=== PATIENT | female | born 1960 | race Caucasian/White ===

== ENCOUNTER 2023-07-22 10:00 | Day surgery (SDC) | payer BC ==
[~2023-07-22] VITALS: Ht 160 cm; Wt 72.9 kg
[~2023-07-22 10:00] MED LIST: ALBU8.5H INH; ATOR1TAB19 PO; BUDE10.2 INH; DESV50TA3 PO; HYDR12.55 PO; IRON65TA2 PO; LEVO125T4 PO; LOSA50TA28 PO; PHENYLEPHRINE 10% OPHTH SOL 5ML OD PRN
[2023-07-22] MEDS: LIDOCAINE 3.5 % 1ML OPHTH TOPICAL GEL OU ONE (10:49)
[2023-07-22] MEDS: OFLOXACIN 0.3 % (OCUFLOX) OPTH SOL 5ML OD ONE (10:50)
[2023-07-22] MEDS: TROPICAMIDE 1% OPHTH SOLN 15ML OD SCH (10:50)
[2023-07-22] MEDS: PHENYLEPHRINE 2.5% OPHTH SOL 2ML OD SCH (10:50)
[2023-07-22] MEDS: ATROPINE SULFATE 1% OPHTH SOLN 2ML BTL OD SCH (10:50)
[2023-07-22] MEDS ORDERED: MIDAZOLAM INJ 2MG/2ML VIAL As Ordered ONE (12:09)
[2023-07-22] MEDS ORDERED: fentaNYL 100 MCG/2 ML INJECTION As Ordered ONE (12:09)
[2023-07-22] MEDS: BSS IRRIG/VANCO(10MG)/TOBRA(5MG)/EPINEPH(1:1000-0.5CC)500ML BAG-ORONLY As Ordered ONE (12:10)
[2023-07-22] MEDS: CEFUROXIME 1MG/0.1ML INTRACAMERAL INJ As Ordered ONE (12:10)
[2023-07-22] MEDS: LIDOCAINE 1% SDV 5ML VIAL As Ordered ONE (12:10)
[2023-07-22 12:24] VITALS: BP 116/62; TEMP 96.9; O2SAT 98
== END 2023-07-22 12:41 | disposition home or self-care (01) ==
LOC: M SDC 10:00
PROVIDERS: ATTEND Ophthalmology
DX: H25.11 Age-related nuclear cataract, right eye (principal); Z87.891 Personal history of nicotine dependence; Z79.899 Other long term (current) drug therapy
CPT/HCPCS: 66984; J0697; J2250; J3010; V2632

== ENCOUNTER 2023-10-14 12:22 | Day surgery (SDC) | payer BC ==
[~2023-10-14] VITALS: Ht 160 cm; Wt 74.0 kg
[~2023-10-14 12:22] MED LIST changes: +MIDAZOLAM INJ 2MG/2ML VIAL As Ordered ONE; -PHENYLEPHRINE 10% OPHTH SOL 5ML OD PRN; +PHENYLEPHRINE 10% OPHTH SOL 5ML OS PRN; +fentaNYL 100 MCG/2 ML INJECTION As Ordered ONE
[2023-10-14] MEDS: ATROPINE SULFATE 1% OPHTH SOLN 2ML BTL OS SCH (14:32)
[2023-10-14] MEDS: TROPICAMIDE 1% OPHTH SOLN 15ML OS SCH (14:32)
[2023-10-14] MEDS: LIDOCAINE 3.5 % 1ML OPHTH TOPICAL GEL OU ONE (14:32)
[2023-10-14] MEDS: PHENYLEPHRINE 2.5% OPHTH SOL 2ML OS SCH (14:32)
[2023-10-14] MEDS: OFLOXACIN 0.3 % (OCUFLOX) OPTH SOL 5ML OS ONE (14:32)
[2023-10-14] MEDS: LIDOCAINE 1% SDV 5ML VIAL As Ordered ONE (15:40)
[2023-10-14] MEDS: CEFUROXIME 1MG/0.1ML INTRACAMERAL INJ As Ordered ONE (15:40)
[2023-10-14] MEDS: BSS IRRIG/VANCO(10MG)/TOBRA(5MG)/EPINEPH(1:1000-0.5CC)500ML BAG-ORONLY As Ordered ONE (15:40)
[2023-10-14 15:48] VITALS: BP 136/66; TEMP 96.6; O2SAT 97
== END 2023-10-14 16:04 | disposition home or self-care (01) ==
LOC: M SDC 12:22
PROVIDERS: ATTEND Ophthalmology
DX: H25.12 Age-related nuclear cataract, left eye (principal); Z79.899 Other long term (current) drug therapy; Z98.41 Cataract extraction status, right eye
CPT/HCPCS: 66984; J0697; J2250; J3010; V2632